=== PATIENT | male | born 2000 | race Two or more races ===

== ENCOUNTER → 2025-10-03 | Outpatient (CLI) | payer MEDICAID, SELFPAY ==
--- NOTE | 2025-10-03 14:36 | XR_ITS ---
EXAMINATION: PA lateral chest 2 views TECHNIQUE: Upright PA lateral chest 2 views Date and time: October 03, 2025, 1451 hours INDICATIONS: Upper chest and back pain 2 weeks FINDINGS: Normal heart size Lungs are clear. Osseous structures are intact IMPRESSION: No active disease
== END | disposition home or self-care (01) ==
LOC: CDIM 14:24
DX: M54.9 Dorsalgia, unspecified (principal)
CPT/HCPCS: 71046